=== PATIENT | female | born 1960 | race American Indian/Alaskan Native ===

== ENCOUNTER 2018-03-01 11:11 | Emergency (ER) | payer MEDICARE ==
[2018-03-01] MEDS ORDERED: TORADOL IM ONE (13:59)
--- NOTE | 2018-03-01 13:59 | Emergency Department Report ---
ED General Adult HPI - General Chief complaint: Pain General Stated complaint: FACIAL SWELLING Time Seen by Provider: 03/01/18 13:20 Source: patient Mode of arrival: Ambulatory Limitations: No Limitations - History of Present Illness Initial comments: Patient complains of right-sided facial pain she says she has swelling to month ago [facility] and [facility] didn't treat her for anything and she didn't know was wrong. She said swelling was from her forehead on the right side onto her mouth area. 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 Patient says that swelling has resolved but she is having occasional pain that feels like numbness and tingling on the right side of her face. She also reports that her right upper eyelid is droopy and she went to the eye doctor and he told her there is nothing wrong with her eye. She reports pain is 7 out of 10 burning and tingling. Denies taking any medication. Nothing makes pain better and nothing makes it worse. Denies any drooling, sore throats or swelling of tongue or neck. MD Complaint: facial pain Onset/Timin -: month(s) Location: face Radiation: non-radiation Severity scale (0 -10): 7 Quality: burning (tingling) Consistency: intermittent Improves with: none Worsens with: none Associated Symptoms: denies: confusion, chest pain, cough, diaphoresis, fever/ chills, headaches, loss of appetite, malaise, nausea/vomiting, rash, seizure, shortness of breath, syncope, weakness Treatments Prior to Arrival: none - Related Data Previous Rx's Medication Instructions Recorded Last Taken Type Pregabalin [Lyrica] 50 mg PO QDAY 15 Days #15 capsule 03/01/18 Unknown Rx Allergies Allergy/AdvReac Type Severity Reaction Status Date / Time No Known Allergies Allergy Unverified 03/01/18 12:03 ED Review of Systems ROS: Stated complaint: FACIAL SWELLING Other details as noted in HPI Constitutional: denies: chills, fever Eyes: denies: eye pain, eye discharge, vision change ENT: other (right facial pain). denies: ear pain, throat pain, dental pain, epistaxis, congestion Respiratory: denies: cough, shortness of breath, SOB with exertion, SOB at rest , stridor, wheezing Cardiovascular: denies: chest pain, palpitations, edema, syncope, paroxysmal nocturnal dyspnea Gastrointestinal: denies: abdominal pain, nausea, vomiting, diarrhea, constipation, hematemesis, melena, hematochezia Musculoskeletal: denies: back pain, joint swelling, arthralgia Skin: denies: rash, lesions Neurological: numbness, paresthesias. denies: headache, weakness, confusion, abnormal gait, vertigo ED Past Medical Hx - Past Medical History Previous Medical History?: Yes Additional medical history: polio, thyroid. Miles's palsy - Surgical History Past Surgical History?: Yes Additional Surgical History: multiple BL knee replacements, partial hysterectomy - Family History Family history: hypertension - Social History Smoking Status: Never Smoker Substance Use Type: None Other Social History: amd lives with family - Medications Home Medications: Home Medications Medication Instructions Recorded Confirmed Last Taken Type Pregabalin [Lyrica] 50 mg PO QDAY 15 Days #15 capsule 03/01/18 Unknown Rx ED Physical Exam - General Limitations: No Limitations General appearance: alert, in no apparent distress - Head Head exam: Present: atraumatic, normocephalic, normal inspection, other (normal exam) - Eye Eye exam: Present: normal appearance, PERRL, EOMI, other (patient with ptosis rt upper lid). Absent: scleral icterus, conjunctival injection, nystagmus, periorbital swelling, periorbital tenderness Pupils: Present: normal accommodation - ENT ENT exam: Present: normal exam, normal orophraynx, mucous membranes moist, TM's normal bilaterally, normal external ear exam, other (bilateral nasal mucosa normal in frontal and maxilla sinuses nontender to palpate. No facial tenderness. Unable to open and close mouth without any difficulties.) - Neck Neck exam: Present: normal inspection, full ROM, other (no C-spine tenderness). Absent: tenderness, meningismus, lymphadenopathy - Respiratory Respiratory exam: Present: normal lung sounds bilaterally. Absent: respiratory distress, wheezes, rales, rhonchi, stridor, chest wall tenderness, accessory muscle use, decreased breath sounds, prolonged expiratory - Cardiovascular Cardiovascular Exam: Present: regular rate, normal rhythm, normal heart sounds. Absent: systolic murmur, diastolic murmur - GI/Abdominal GI/Abdominal exam: Present: soft, normal bowel sounds. Absent: distended, tenderness, guarding, rebound, rigid, organomegaly, mass, bruit, pulsatile mass , hernia - Extremities Exam Extremities exam: Present: normal inspection, full ROM, normal capillary refill , other (full range of motion to all extremities. No clubbing, cyanosis or edema. +2 pulses to all extremities). Absent: tenderness, pedal edema, joint swelling, calf tenderness - Back Exam Back exam: Present: normal inspection, full ROM, other (ambulates without any difficulties). Absent: tenderness, CVA tenderness (R), CVA tenderness (L), muscle spasm, paraspinal tenderness, vertebral tenderness, rash noted - Neurological Exam Neurological exam: Present: alert, oriented X3, normal gait, reflexes normal, other (no focal neurological deficit. No facial drooping, speech is clear and fluid, positive symmetry. No facial palsy.). Absent: motor sensory deficit - Psychiatric Psychiatric exam: Present: normal affect, normal mood - Skin Skin exam: Present: warm, dry, intact, normal color. Absent: rash ED Course Vital Signs 03/01/18 11:59 Temperature 97.9 F Pulse Rate 94 H Respiratory 18 Rate Blood Pressure 141/96 O2 Sat by Pulse 100 Oximetry - Reevaluation(s) Reevaluation #1: 03/01/18 15:53 Patient given Toradol 30 mg IM in emergency room for pain with positive relief of pain down to 3 out of 10. She is stable and I discussed with her that she is to follow up with neurology. Critical care attestation.: If time is entered above; I have spent that time in minutes in the direct care of this critically ill patient, excluding procedure time. ED Disposition Clinical Impression: Right facial pain, Numbness and tingling of right face Disposition: DC-01 TO HOME OR SELFCARE Is pt being admited?: No Does the pt Need Aspirin: No Condition: Stable Instructions: Paresthesia (ED), Musculoskeletal Pain (ED) Additional Instructions: Please follow up with neurologist as instructed See referral to primary care physician in [facility] discharge instruction paperwork Take Neurontin for facial pain as instructed Prescriptions: Pregabalin [Lyrica] 50 mg PO QDAY 15 Days #15 capsule Referrals: BLAZE AYALA MD [Staff Physician] - 2-3 Days SUSANNE TANNER MD [Staff Physician] - 2-3 Days SAM PEREZ MD [Staff Physician] - 2-3 Days SHERIF LYN MD [Staff Physician] - 2-3 Days Forms: Work/School Release Form(ED), Accompanied Note
[2018-03-01 16:29] VITALS: BP 137/82
== END 2018-03-01 16:52 | disposition home or self-care (01) ==
LOC: ED 11:11
DX: R51 Headache (principal)
CPT/HCPCS: 96372; 99282; J1885

== ENCOUNTER 2019-02-03 23:28 | Emergency (ER) | payer MEDICARE ==
[2019-02-03 23:34] VITALS: BP 134/94
--- NOTE | 2019-02-04 00:44 | Cat Scan Report ---
PROCEDURE: CT HEAD/BRAIN WO CON TECHNIQUE: Routine axial imaging was obtained of the brain without IV contrast. HISTORY: headache COMPARISONS: None FINDINGS: There is no evidence of acute stroke or hemorrhage. There is slightly diminished attenuation of the d eep white matter bilaterally most likely related to chronic ischemic white matter disease changes. Th e ventricular system is appropriate in size and symmetric. The basal cisterns appear normal. The visu alized sinuses are clear. The calvarium appears intact. IMPRESSION: No evidence of acute stroke or hemorrhage. Slightly diminished attenuation of the deep white matter bilaterally most likely related to small ves chrissy disease changes.. This document is electronically signed by Medhat Bone MD., February 04 2019 12:42:55 AM ET
--- NOTE | 2019-02-04 00:56 | Emergency Department Report ---
HPI - General Chief Complaint: Headache Time Seen by Provider: 02/04/19 00:25 - HPI HPI: 59 year-old female presents to the emergency department with complaint of a generalized headache that has been going on for the past 4 days. The intensity has waxed and waned but has never resolved. She denies any vision change, slurred speech or any neurological deficits. The patient is concerned as she says that she does not usually have a history of headaches and there is a family history of cerebral aneurysm, even though she has never been diagnosed with 1. She does have a history of a previous CVA that did not leave her with any residual deficits. She took some Advil for her discomfort with some transient relief. No recent travel or sick contacts at home. She is currently searching for a new primary care physician. Denies tobacco or illicit drug use. ED Past Medical Hx - Past Medical History Previous Medical History?: Yes Hx CVA: Yes Additional medical history: polio, thyroid. Miles's palsy - Surgical History Past Surgical History?: Yes Additional Surgical History: multiple BL knee replacements, partial hysterectomy - Social History Smoking Status: Never Smoker Substance Use Type: None - Medications Home Medications: Home Medications Medication Instructions Recorded Confirmed Last Taken Type Pregabalin [Lyrica] 50 mg PO QDAY 15 Days #15 capsule 03/01/18 Unknown Rx ED Review of Systems ROS: Stated complaint: HBP/WEAKNESS Other details as noted in HPI Constitutional: weakness. denies: fever Eyes: denies: eye pain, vision change ENT: denies: ear pain, throat pain Respiratory: denies: cough, shortness of breath Cardiovascular: denies: chest pain, palpitations Gastrointestinal: denies: abdominal pain, vomiting Genitourinary: denies: dysuria, frequency Musculoskeletal: denies: back pain, arthralgia Skin: denies: rash, lesions Neurological: headache. denies: numbness, paresthesias Physical Exam - Physical Exam Vital Signs: Vital Signs 02/03/19 23:31 Temperature 98.2 F Pulse Rate 81 Respiratory 20 Rate Blood Pressure 134/94 O2 Sat by Pulse 100 Oximetry Physical Exam: GENERAL: The patient is well-developed well-nourished. HEENT: Normocephalic. Atraumatic. Patient has moist mucous membranes. EYES: Extraocular motions are intact. Pupils are equal and reactive to light bilaterally. Mild fatigable horizontal nystagmus. NECK: Supple. Trachea is midline. CHEST/LUNGS: Clear to auscultation. There is no respiratory distress noted. HEART/CARDIOVASCULAR: Regular. There is no tachycardia. There is no obvious murmur. ABDOMEN: Abdomen is soft, nontender. Patient has normal bowel sounds. There is no abdominal distention. SKIN: Skin is warm and dry. NEURO: The patient is awake, alert, and oriented. The patient is cooperative. The patient has no focal neurologic deficits. The patient has normal speech. Cranial nerves II through XII grossly intact. No pronator drift. No dysmetria. No facial asymmetry. MUSCULOSKELETAL: There is no tenderness or deformity. There is no limitation range of motion. There is no evidence of acute injury. ED Course Vital Signs 02/03/19 23:31 Temperature 98.2 F Pulse Rate 81 Respiratory 20 Rate Blood Pressure 134/94 O2 Sat by Pulse 100 Oximetry ED Medical Decision Making - Lab Data Result diagrams: 02/04/19 00:41 02/04/19 00:41 - Radiology Data Radiology results: report reviewed PROCEDURE: CT HEAD/BRAIN WO CON TECHNIQUE: Routine axial imaging was obtained of the brain without IV contrast. HISTORY: headache COMPARISONS: None FINDINGS: There is no evidence of acute stroke or hemorrhage. There is slightly diminished attenuation of the deep white matter bilaterally most likely related to chronic ischemic white matter disease changes. The ventricular system is appropriate in size and symmetric. The basal cisterns appear normal. The visualized sinuses are clear. The calvarium appears intact. IMPRESSION: No evidence of acute stroke or hemorrhage. Slightly diminished attenuation of the deep white matter bilaterally most likely related to small vessel disease changes.. This document is electronically signed by Medhat Bone MD., February 04 2019 12:42:55 AM ET Transcribed By: ED Dictated By: MEDHAT BONE MD Electronically Authenticated By: MEDHAT BONE MD Signed Date/Time: 02/04/19 0044 - Medical Decision Making Patient presents to the emergency department with complaint of a four-day history of a headache. She originally had concern because this is the same thing occurred before prior CVA allegedly. CT scan of the head was done that did not show any bleed, shift, mass, ischemia or any other acute process. The patient is currently a 0 on the NIH stroke scale. Labs have been unremarkable. The plan was going to be to get a CT angiography of the head and neck to look for any signs of occlusion, stenosis or aneurysm. Also the patient had not yet had an EKG. At one point I went into reevaluate the patient and she had eloped from the emergency department. Supposedly she told the charge nurse that she had to leave because otherwise she would not have a ride. - Differential Diagnosis CVA, TIA, SAH, Tension VERGARA, Migraine Critical Care Time: No Critical care attestation.: If time is entered above; I have spent that time in minutes in the direct care of this critically ill patient, excluding procedure time. ED Disposition Clinical Impression: History of CVA (cerebrovascular accident) Headache Qualifiers: Headache type: unspecified Headache chronicity pattern: unspecified pattern Intractability: not intractable Qualified Code(s): R51 - Headache Disposition: Z ELOPED Is pt being admited?: No - Assessment Assessment Interval: Baseline - Level of Consciousness 1a. Level of Consciousness: alert/keenly responsive - LOC Questions 1b. LOC Questions: answers both correctly - LOC Command 1c. LOC Commands: performs tasks correctly - Best Gaze 2. Best Gaze: normal - Visual 3. Visual: no visual loss - Facial Palsy 4. Facial Palsy: normal symmetrical movement - Motor Arm 5a. Motor Arm Left: no drift 5b. Motor Arm Right: no drift - Motor Leg 6a. Motor Leg Left: no drift 6b. Motor Leg Right: no drift - Limb Ataxia 7. Limb Ataxia: absent - Sensory 8. Sensory: normal - Best Language 9. Best Language: no aphasia - Dysarthria 10. Dysarthria: normal - Extinction and Inattention 11. Extinction/Inattention: no abnormality - Scoring Total Score: 0 Stroke Severity: No Stroke Symptoms
[2019-02-04 01:07] LABS: Basophils % (Auto) 0.7 % (0.0-1.8); Eosinophils # (Auto) 0.2 K/mm3 (0.0-0.4); Eosinophils % (Auto) 3.4 % (0.0-4.3); Hematocrit 39.2 % (30.3-42.9); Hemoglobin 13.1 gm/dl (10.1-14.3); Lymphocytes # (Auto) 1.6 K/mm3 (1.2-5.4); Mean Corpuscular HGB Conc 34 % (30-34); Mean Corpuscular Volume 94 fl (79-97); Monocytes # (Auto) 0.3 K/mm3 (0.0-0.8); Monocytes % (Auto) 7.1 % (0.0-7.3); Platelet Count 243 K/mm3 (140-440); Red Blood Count 4.15 M/mm3 (3.65-5.03); Red Cell Distribution Width 14.7 % (13.2-15.2)
[2019-02-04 01:24] LABS: BUN/Creatinine Ratio 13; Blood Urea Nitrogen 9 mg/dL (7-17); Calcium 9.5 mg/dL (8.4-10.2); Hemolysis Index 15
== END 2019-02-04 02:15 | disposition left against medical advice (07) ==
LOC: ED 23:28
DX: R51 Headache (principal); Z86.73 Personal history of transient ischemic attack (TIA), and cerebral infarction without residual deficits
CPT/HCPCS: 36415; 70450; 80048; 84443; 84484; 85025

== ENCOUNTER 2019-05-10 10:49 | Outpatient (CLI) | payer MEDICARE ==
--- NOTE | 2019-05-10 13:10 | Mammography Report ---
BONE DEXA. History: [facility] Procedure: 2 site bone densitometry performed on a Hologic scanner. Comparison: None Findings: The BMD of the lumbar spine (L1-L3) is 0.812 gm/cm2 with a T-score of -1.5 and a Z score of -0.8 The bone mineral density (BMD) of the left femoral neck is 0.666 gm/cm2 with a T-score of -1.6 and a Z score of -1.0. The BMD of the total left hip is 0.738 gm/cm2 with a T-score of this 1.7 and a Z sc ore of -1.1. Impression: WHO Classification: Osteopenia with increased fracture risk based on lumbar spine measurements. WHO classification: Osteopenia with increased fracture risk based on left hip measurements. The FRAX 10 year fracture probability for a major osteoporotic fracture is 3.8%. The FRAX 10 year fracture probability for hip fracture is 0.3%. Pharmacological treatment, if not already prescribed should be started. A followup bone density test is recommended in one year to monitor response to therapy. Note:FRAX version 3.01. Fracture probability calculated for an untreated patient. Fracture probabilit y may be lower if the patient has received treatment. RECOMMENDATION: Clinical correlation and routine screening. Definitions: BMD = Bone Mineral Density T score = BMD related to mean peak bone mass of young adult ([place] expressed an standard deviation) Z score = Age-matched BMD expressed in SD World health organization (WHO) diagnostic criteria: Normal: T score greater than -1 SD. Osteopenia: T score between - SD and -2.4 SD. Osteoporosis: T score -2.5 SD or below Note: BMD is not the only risk factor for fracture; also consider factors such as the patient's age, risk of falling, previous osteoporotic fracture, family history of osteoporotic fractures, smoking st atus and low body weight. All treatment decisions require clinical judgment and consideration of individual patient factors inc luding patient preferences, comorbidities, previous drug use and risk factors not captured in the FRA X model (e.g. Frailty, falls, vitamin D deficiency, increased bone turnover, interval significant dec line in BMD). A more detailed DEXA Bone Densitometry report is available upon request. Signer Name: Darryl Kearns MD Signed: 05/10/2019 1:05 PM Workstation Name: [id number]
== END 2019-05-10 10:50 | disposition home or self-care (01) ==
LOC: MAMMO 10:49
PROVIDERS: ATTEND Family Medicine
DX: M85.88 Other specified disorders of bone density and structure, other site (principal); Z78.0 Asymptomatic menopausal state; Z91.89 Other specified personal risk factors, not elsewhere classified; Z90.710 Acquired absence of both cervix and uterus
CPT/HCPCS: 77080